=== PATIENT | female | born 1970 | race Caucasian/White ===

== ENCOUNTER 2016-09-24 14:46 | Emergency (ER) | payer OTHER, MEDICARE ==
[2013-11-06 04:10] VITALS: BMI 25.8
[~2016-09-24 14:46] MED LIST: ACETAMINOPHEN500 M1 PO; BACTRIM DS TABL1 TAB PO; BACTROBAN CREAM15 GM TP; CIPRO500 MG PO; EFFEXOR75 MG PO; GLUCOPHAGE500 MG PO; KLONOPIN1 MG PO; LEVAQUIN750 MG PO; LEVOXYL50 MCG PO; NAPROSYN500 MG PO; NEURONTIN600 MG PO; ROBAXIN500 MG PO; SUBOXONE 8 M1 TAB.SL; TOPAMAX200 MG PO; ULTRAM ER100 MG PO; XANAX0.25 MG PO
== END 2016-09-24 16:01 | disposition home or self-care (01) ==
LOC: D.ER 14:46
DX: H66.92 Otitis media, unspecified, left ear (principal); H92.02 Otalgia, left ear; F31.9 Bipolar disorder, unspecified; E03.9 Hypothyroidism, unspecified

== ENCOUNTER 2017-05-04 18:48 | Inpatient (IN) | payer MEDICARE ==
[~2017-05-04] VITALS: Ht 162.6 cm; Wt 90.1 kg
[2017-05-04 22:48] LABS: BASOPHILS 0.2 % (0-2); EOSINOPHILS 1.9 % (0-7); HEMATOCRIT 38.1 % (36.0-48.0); HEMOGLOBIN 12.8 g/dL (12-16); IMMATURE GRANULOCYTES 0.3 % (0-5); LYMPHOCYTES 19.2 % (15-50); MCH 29.1 pg (26.0-34.0); MCHC 33.6 g/dL (31.0-37.0); MCV 86.6 fL (80.0-100.0); MEAN PLATELET VOLUME 9.3 fL (7.4-10.4); MONOCYTES 7.5 % (2-11); NEUTROPHILS 70.9 % (40-80); PLATELET COUNT 374 10x3/uL (130-400); RDW 13.8 % (11.5-14.5)
[2017-05-04 22:58] LABS: ALBUMIN 3.2 g/dL (3.4-5.0); ALKALINE PHOSPHATASE 87 U/L (46-116); ALT (SGPT) 21 U/L (10-68); CALC OSMOLALITY 278 mosm/kg (275-300); CALCIUM 8.6 mg/dL (8.5-10.1); CARBON DIOXIDE 28.6 mmol/L (21.0-32.0); CHLORIDE - SERUM 104 mmol/L (98-107); CREATININE - SERUM 0.7 mg/dL (0.6-1.3); GLUCOSE 98 mg/dL (74-106); POTASSIUM - SERUM 3.9 mmol/L (3.5-5.1); SODIUM 140 mmol/L (136-145); UREA NITROGEN 12 mg/dL (7-18); eGFR NON AFRICAN AMERICAN > 90 mL/min (90-120)
[2017-05-05 03:12] LABS: APPEARANCE HAZY (CLEAR); BILIRUBIN NEGATIVE (NEGATIVE); COLOR YELLOW (YELLOW); GLUCOSE NEGATIVE (NEGATIVE); KETONE NEGATIVE (NEGATIVE); LEUKOCYTE ESTERASE TRACE (NEGATIVE); NITRITE NEGATIVE (NEGATIVE); PROTEIN NEGATIVE (NEGATIVE); UROBILINOGEN NORMAL (NORMAL)
[2017-05-05 03:13] LABS: BACTERIA MODERATE /hpf (NONE SEEN); EPITHELIAL CELLS 0-5 /hpf (0-5); RED CELLS - URINE NONE SEEN /hpf (0-5); WHITE CELLS - URINE 0-5 /hpf (0-5)
[2017-05-05 03:20] LABS: UDS - AMPHET POSITIVE QUAL (NEGATIVE); UDS - BARB NEGATIVE QUAL (NEGATIVE); UDS - BENZO POSITIVE QUAL (NEGATIVE); UDS - COCAINE NEGATIVE QUAL (NEGATIVE); UDS - METH NEGATIVE QUAL (NEGATIVE); UDS - OPIATE POSITIVE QUAL (NEGATIVE); UDS - PCP NEGATIVE QUAL (NEGATIVE); UDS - THC NEGATIVE QUAL (NEGATIVE)
[2017-05-05 04:00] VITALS: BP 98/66
[2017-05-05 05:54] VITALS: BP 98/66; BMI 32.3
[2017-05-05 08:00] VITALS: BP 100/57
[2017-05-05 10:13] VITALS: Ht 162.6 cm; Wt 90.1 kg
--- NOTE | 2017-05-05 11:28 | NUR ---
0715- AM ROUNDING- RECEIVED REPORT FROM CARTON FILLING MACHINE OPERATOR NURSE TITA. PT IS CURRENTLY SITTING UP ON SIDE OF BED WITH EYES OPEN RESTING. ON ROOM AIR. NO MONITOR. IV SEEN TO RIGHT AC THAT IS CURRENTLY SALINE LOCKED. SOILED DRESSING SEEN TO LEFT SIDE OF MIDDLE BACK, WILL ASSESS SITE AND PLACE NEW DRESSING. NO NEED AT THIS CURRENT TIME. WILL CONTINUE TO MONITOR AND CONTINUE WITH PLAN OF CARE. CALL LIGHT IS IN REACH.
[2017-05-05 12:00] VITALS: BP 103/71
--- NOTE | 2017-05-05 13:59 | NUR ---
SCDS PLACED ON PT.
--- NOTE | 2017-05-05 14:15 | NUR ---
UPON GIVING PT MEDICAITON, PT STATES "I NEED SOME PAIN MEDICINE BEFORE I WALK THE FUCK UP OUT OF HERE". KANU HARRISON NP ON UNIT. WILL LET HER BE AWARE OF THIS.
[2017-05-05 14:55] LABS: HEMOGLOBIN A1C 6.5 % (4.8-6.0)
--- NOTE | 2017-05-05 14:58 | NUR ---
DR. MCGRAW ON UNIT. DR. MCGRAW GIVES VERBAL ORDERS FOR NICOTINE PATCH. WILL AWAIT PHARMACY TO ACKNOWLEDGE AND GIVE ORDERED.
[2017-05-05 16:00] VITALS: BP 105/65
--- NOTE | 2017-05-05 16:05 | NUR ---
PTS IV TO RIGHT AC WILL NOT FLUSH. IV REMOVED WITH CATH TIP INTACT. COVERED SITE WITH 2X2 GAUZE PADS AND SECURED WITH TEGADERM. RESITED PT WITH 22G IV CATHETER TO RIGHT FOREARM X1 STICK. TOLERATED WELL. WILL HANG IV FLUIDS AND ANTIBIOTICS ORDERED.
--- NOTE | 2017-05-05 17:31 | NUR ---
1630- THIS NURSE CHANGED PTS DRESSING TO MID LEFT BACK ARE FOR SECOND TIME ON SHIFT DUE TO DRESSING BEING SOILED WITH BLOODY, WHITE PUS DRAINAGE. WOUND CLEANED WITH WOUND CLEANSER AND PAT DRIED. COVERED WOUND AREA WITH ABD PAD. 1700- DR. PILLAI IN ROOM NOW ASSESSING PTS WOUND TO LEFT MID BACK AREA. DR. PILLAI STATES SINCE PT HAS ALREADY EATEN THEY WILL DO DRAINAGE IN THE MORNING. PT INSTRUCTED TO REMAIN NOTHING BY MOUTH AFTER MIDNIGHT, PT AGREES. PT IS CURRENTLY SITTING UP IN BED EATING DINNER. NO NEED AT THIS CURRENT TIME. WILL CONTINUE TO MONITOR.
[2017-05-05 20:00] VITALS: BP 114/73
--- NOTE | 2017-05-05 20:38 | NUR ---
PT AWAKE, ALERT, ORIENTED, REQUESTING ICE CREAM AND SHERBERT, PAIN MEDICATION AND ATIVAN. I EXPLAINED TO PT THAT IT IS TOO EARLY, BUT SHE CAN HAVE THEM @ 22:00. PT DID ACCEPT THE PRN TORADOL. DRESSING TO LL BACK IS INTACT, WITH MODERATE DRAINAGE ACCUMULATING UNDERNEATH THE GAUZE. PT DENIES ANY OTHER NEEDS, CONTINUE TO MONITOR CLOSELY. BED LOW, CALL LIGHT IN REACH, SIDE RAILS X 2, HOB 30 DEGREES. PT'S IV IS CURRENTLY SL IN RIGHT FOREARM SO PT CAN AMBULATE WITHOUT DIFFICULTY.
[2017-05-06] VITALS: BP 89/67
--- NOTE | 2017-05-06 01:23 | NUR ---
PT RESTING COMFORTABLY, EASILY ROUSABLE TO VERBAL STIMULI, DENIES ANY NEEDS. CONTINUE TO MONITOR CLOSELY. BED LOW, CALL LIGHT IN REACH, SIDE RAILS X 2, HOB 30 DEGREES.
[2017-05-06 04:00] VITALS: BP 101/64
[2017-05-06 04:59] LABS: BASOPHILS 0.5 % (0-2); EOSINOPHILS 4.9 % (0-7); HEMATOCRIT 33.9 % (36.0-48.0); HEMOGLOBIN 11.4 g/dL (12-16); IMMATURE GRANULOCYTES 0.3 % (0-5); MCH 28.9 pg (26.0-34.0); MCHC 33.6 g/dL (31.0-37.0); MEAN PLATELET VOLUME 9.3 fL (7.4-10.4); MONOCYTES 10.4 % (2-11); NEUTROPHILS 61.9 % (40-80); PLATELET COUNT 410 10x3/uL (130-400); RBC 3.94 10x6/uL (4.00-5.40); RDW 13.9 % (11.5-14.5)
[2017-05-06 05:03] LABS: WBC 8.6 10x3/uL (4.8-10.8)
[2017-05-06 05:24] LABS: ALBUMIN 2.5 g/dL (3.4-5.0); ALKALINE PHOSPHATASE 98 U/L (46-116); BILIRUBIN - TOTAL 0.24 mg/dL (0.2-1.3); CALC OSMOLALITY 276 mosm/kg (275-300); CALCIUM 7.8 mg/dL (8.5-10.1); CARBON DIOXIDE 26.4 mmol/L (21.0-32.0); CHLORIDE - SERUM 104 mmol/L (98-107); CREATININE - SERUM 0.7 mg/dL (0.6-1.3); GLUCOSE 153 mg/dL (74-106); PROTEIN - SERUM 5.9 g/dL (6.4-8.2); SODIUM 137 mmol/L (136-145); UREA NITROGEN 12 mg/dL (7-18); eGFR NON AFRICAN AMERICAN > 90 mL/min (90-120)
[2017-05-06 05:25] LABS: ALT (SGPT) 101 U/L (10-68); POTASSIUM - SERUM 3.3 mmol/L (3.5-5.1)
--- NOTE | 2017-05-06 05:54 | NUR ---
CONSENTS FOR INCISION AND DRAINAGE OF BACK ABSCESS PER DR. PILLAI ALONG WITH BLOOD AND ANESTHESIA CONSENTS SIGNED AND IN CHART. PT DENIED ANY QUESTIONS DURING THIS. CONTINUE TO MONITOR CLOSELY. BED LOW, CALL LIGHT IN REACH, SIDE RAILS X 2, HOB 30 DEGREES.
--- NOTE | 2017-05-06 08:10 | NUR ---
0715- AM ROUNDING- RECEIVED REPORT FROM TYRE BUILDER NURSE ROSEMARY. PT IS CURRENTLY SITTING UP IN BED WITH EYES OPEN RESTING. ANESTHESIA IN ROOM NOW ASKING PT QUESTIONS. PT IS NPO ORDERED FOR PROCEDURE TODAY. CONSENTS ARE SIGNED AND IN CHART. ON ROOM AIR. ON MONITOR SHOWING SR, HR 88. IV SEEN TO RIGHT FOREARM WITH NS RUNNING AT KVO. NO NEED AT THIS CURREN TIME. WILL CONTINUE TO MONITOR AND CONTINUE WITH PLAN OF CARE.
[2017-05-06 09:31] VITALS: BP 84/41
--- NOTE | 2017-05-06 10:23 | NUR ---
1000- PT GIVEN PRE-OP MEDICATIONS WITH SIP OF WATER ORDERED. IV FLUIDS HUNG AND TUBING PRIMED. PT HAS BEEN NPO SINCE MIDNIGHT. CONSENTS ARE SIGNED AND IN CHART. PT TO OR VIA BED.
--- NOTE | 2017-05-06 12:12 | NUR ---
PT IS BACK FROM OR VIA BED. PT IS AWAKE, BUT SLIGHTLY LETHARGIC. ON ROOM AIR. VITAL SIGNS STARTED PER PROTOCOL. CDI DRESSING TO LEFT SIDE OF BACK.
[2017-05-06 12:13] VITALS: BP 112/68
--- NOTE | 2017-05-06 14:03 | NUR ---
PTS GUEST MEMBER COMES UP TO NURSES STATION DEMANDING PTS BEDDING BE CHANGED AND THAT PT WAS UPSET PTS BEDDING HAS NOT BEEN CHANGED. THIS NURSE INFORMED GUEST THAT THIS NURSE WAS JUST IN PTS ROOM GETTING HER TWO CLEAN GOWNS REQUESTED AND THAT PT HAS NOT SAID ONE WORD TO THIS NURSE REGARDING BEDDING BEING CHANGED. AT THE SAME TIME GUEST WORE ISOLATION GEAR OUT OF PTS ROOM TO NURSES STATION AND WAS INSTRUCTED TO NOT WEAR CONTAMINATED GOWN OUT. PT GOT IRRIATED AND STATES PTS BEDDING NEEDS TO BE TAKEN CARE OF. I INFORMED PTS GUEST THAT WE WILL GET BEDDING CHANGED. ELENA PAZ AND I WENT AND CHANGED PTS BEDDING.
--- NOTE | 2017-05-06 15:08 | NUR ---
PT NOW ON EP. REPLACED POTASSIUM ORDERED AND ORDERED LAB TO BE DRAWN DIRECTED BY EP. PT IS LETHARGIC LAYING IN BED WITH EYES CLOSED RESTING. CALL LIGHT IS IN REACH. WILL CONTINUE TO MONITOR.
--- NOTE | 2017-05-06 16:25 | OP ---
PATIENT NAME: TIMI MADHAV MEDICAL RECORD: [id number] :70 LOCATION:D. [id number] ADMISSION DATE:05/05/17 SURGEON: LEIDY PILLAI MD DATE OF OPERATION: 05/06/2017 SURGEON: Leidy Pillai MD PREOPERATIVE DIAGNOSIS: Left back cellulitis with abscess. POSTOPERATIVE DIAGNOSIS: Left back cellulitis with abscess. PROCEDURE PERFORMED: Incision and drainage of multiloculated complex subcutaneous abscess. ANESTHESIA: General. COMPLICATIONS: None. SPECIMENS: 1. Tissue culture. 2. Anaerobic and aerobic cultures. Case was grossly contaminated. ESTIMATED BLOOD LOSS: 20 cc. OPERATIVE COURSE: After consent was obtained, the patient was taken to the operating room. The patient was intubated and then placed into the prone position on the operating table. The back was prepped and draped in typical sterile fashion. Local anesthetic was administered. An elliptical skin incision was made including the skin opening. The skin ellipse was sent for tissue culture. Approximately 20 cc of pus were expressed from the wound. Culture swabs were taken and sent to the lab for culture. Finger dissection was performed breaking up the multiloculated skin and subcutaneous tissue abscess cavity. The abscess cavity measured 10 cm x 4 cm x 4 cm. The wound was copiously irrigated and suctioned. Hemostasis was obtained with electrocautery. The wound was then packed with Kerlix soaked in Betadine and peroxide. At the end of the case, all needle and instrument counts were correct. No complications occurred. The patient was extubated and transferred to the PACU in stable condition. TRANSINT:[id number] Voice Confirmation ID: [id number] DOCUMENT ID: [id number] LEIDY PILLAI MD at 1625 CC: [id number] DICTATION DATE: 05/06/17 1103 HYPERBARIC TECHNICIAN: 05/06/17 1306 [place] [address]
--- NOTE | 2017-05-06 16:27 | NUR ---
UPON GIVING PT SCHEDULED MEDICATIONS, PT ASKED FOR PAIN MEDICATION. I WENT AND GOT PAIN MEDICATION AND CAME BACK. STARTED TO GIVE PT PAIN MEDICATION AND PT STATES "I ASKED FOR ATIVAN EARLIER". I INFORMED PT THAT SHE TOLD ME SHE WANTED PAIN MEDICATION AND BEFORE I COULD APOLOGIZE PT RAISED HAND TO MY FACE AND STATES "I AM A HUMAN BEING, YOU ARE GOING TO TALK TO ME LIKE ONE OR I CAN FIND ANOTHER NURSE" I APOLOGIZED TO PT ABOUT PT NOT RECEIVING ATIVAN. ATIVAN PULLED BY SECOND NURSE AND THIS NURSE GAVE. I INFORMED PT I CAN GET MEDICATION CARE MANAGER IF NEEDED (PT STATES SHE DIDN'T HAVE UNIT MANAGERS NUMBER). PT STATES " I WILL TAKE CARE OF IT". I ASKED PT IF THERE WAS ANYTHING ELSE I COULD GET FOR HER AND PT STATES, " A CUP OF ICE AND SOME UNSWEET TEA". ELENA PAZ GAVE PT CUP OF ICE AND UNSWEET TEA. NO FURTHER NEED AT THIS TIME. WILL CONTINUE TO MONITOR.
--- NOTE | 2017-05-06 17:35 | NUR ---
PT IS CURRENTLY SITTING UP ON SIDE OF BED EATING DINNER TRAY. ASSISTED PT IN CHANGING HER GOWN (PT TOOK UNDERSHIRT OFF). DRESSING TO LEFT BACK IS CLEAN, DRY, AND INTACT. PT ASKED IF NEEDING ANYTHING ELSE. NO FURTHER NEED AT THIS TIME. WILL CONTINUE TO MONITOR.
--- NOTE | 2017-05-06 17:36 | NUR ---
Patient Name: TIMI COREY Admission Status: ER Accout number: [id number] Admission Date: 05-05-2017 : 1970 Admission Diagnosis: Attending: JENNA MCGRAW Current LOS: 1 Anticipated DC Date: 05-07-2017 Planned Disposition: Home with Home Health Primary Insurance: [employer] PPO PLANNED EXTERNAL PROVIDER: [facility] Discharge Planning Comments: * Is the patient Alert and Oriented? Yes 0 * How many steps to enter\exit or inside your home? 2 0 * PCP [facility] 0 * Pharmacy [facility], [facility]. 0 * Preadmission Environment Home Alone 0 * ADLs Independent 0 * Equipment None 0 * Other Equipment NO MEDICAL EQUIPMENT PROVIDER PREFERENCE 0 * List name and contact numbers for known caregivers / representatives who currently or will assist patient after discharge: NACHO COREY, [employer], 0 * Community resources currently utilized None 0 * Please name any agencies selected above. NONE 0 * Additional services required to return to the preadmission environment? Yes * Can the patient safely return to the preadmission environment? Yes 0 * Has this patient been hospitalized within the prior 30 days at any hospital? No [address] PILLAI WHO REPORTED THAT PT IS READY TO DISCHARGE FROM HIS STANDPOINT WITH DAILY DRESSING CHANGES AND HOME HEALTH. CM NOTIFIED ALEX HARRISON. CM MET WITH PT IN ROOM TO DISCUSS DISCHARGE PLANNING AND NEEDS. PT REPORTS LIVING AT HOME INDEPENDENTLY AND ALONE. PT HAS NO MEDICAL EQUIPMENT AND NO OUTSIDE SERVICES ASSISTING IN THE HOME. CM DISCUSSED AVAILABILITY OF HOME HEALTH, REHAB SERVICES AND MEDICAL EQUIPMENT. PT WOULD LIKE [facility], CHOICE SIGNED. PT HAS FRIEND, ARCELIA, THAT CAN BE TRAINED TO ASSIST WITH WOUND CARE IF NEEDED. PT REPORTS HER EX SPOUSE WILL PICK HER UP FOR DISCHARGE HOME. CM CALLED [facility], , SPOKE TO AYAAN WHO TOOK REFERRAL AND ACCEPTED PT FOR HOME HEALTH. CM FAXED REFERRAL TO [facility] AT [phone]. FOR DISCHARGE, HOME HEALTH NEEDS SPECIFIC WOUND CARE ORDERS FAXED TO [phone], NOTIFY [facility] OF DISCHARGE AT [phone]. Sports Administrator: Jason Carter
--- NOTE | 2017-05-06 18:09 | NUR ---
IN PTS ROOM CHECKING ON HER. PT STATES SHE NEEDS LAXATIVE OR SOMETHING DUE TO NOT HAVING A BM IN SEVERAL DAYS. GAVE PT CUP OF COFFEE AND PRUNE JUICE MIXED WITH SPRITE. PT STATES SHE FEELS LIKE SHE IS RUNNING A FEVER. THIS NURSE CHECKED PTS TEMP WHICH IS 98.5. TURNED LIGHTS OFF REQUESTED. NO FURTHER NEED AT THIS TIME. WILL CONTINUE TO MONITOR.
--- NOTE | 2017-05-06 19:20 | NUR ---
AWAKE/ALERT TALKING TO VISITORS IN ROOM. DENIES ANY NEEDS. BED IS LOW WITH SR UP X2. CL AND BEDSIDE TABLE WITH PERSONAL ITEMS IN REACH.
[2017-05-06 20:00] VITALS: BP 110/63
[2017-05-07] VITALS: BP 92/62
--- NOTE | 2017-05-07 00:25 | NUR ---
ADMIN NORCO PO AND ATIVAN PO PER REQUEST FOR C/O L SIDE INCISIONAL PAIN LEVEL 9 ON NUMBER SCALE; ATIVAN FOR RESTLESSNESS/ANXIETY.
--- NOTE | 2017-05-07 00:39 | NUR ---
AMBULATING IN HALLWAY, STATING GOING FOR COFFEE.
[2017-05-07 03:12] LABS: BASOPHILS 0.2 % (0-2); EOSINOPHILS 2.8 % (0-7); HEMATOCRIT 33.6 % (36.0-48.0); HEMOGLOBIN 11.1 g/dL (12-16); IMMATURE GRANULOCYTES 0.3 % (0-5); LYMPHOCYTES 22.5 % (15-50); MCH 28.6 pg (26.0-34.0); MCV 86.6 fL (80.0-100.0); MEAN PLATELET VOLUME 9.1 fL (7.4-10.4); NEUTROPHILS 64.2 % (40-80); PLATELET COUNT 419 10x3/uL (130-400); RBC 3.88 10x6/uL (4.00-5.40)
[2017-05-07 03:15] LABS: WBC 12.3 10x3/uL (4.8-10.8)
[2017-05-07 03:27] LABS: ALBUMIN 2.7 g/dL (3.4-5.0); ALKALINE PHOSPHATASE 127 U/L (46-116); ALT (SGPT) 103 U/L (10-68); BILIRUBIN - TOTAL 0.24 mg/dL (0.2-1.3); CALC OSMOLALITY 273 mosm/kg (275-300); CALCIUM 8.2 mg/dL (8.5-10.1); CARBON DIOXIDE 27.3 mmol/L (21.0-32.0); CHLORIDE - SERUM 104 mmol/L (98-107); CREATININE - SERUM 0.7 mg/dL (0.6-1.3); GLUCOSE 126 mg/dL (74-106); POTASSIUM - SERUM 3.9 mmol/L (3.5-5.1); PROTEIN - SERUM 6.4 g/dL (6.4-8.2); SODIUM 137 mmol/L (136-145); VANCOMYCIN - TROUGH 4.7 ug/mL (10.0-20.0); eGFR NON AFRICAN AMERICAN > 90 mL/min (90-120)
[2017-05-07 03:29] LABS: UREA NITROGEN 8 mg/dL (7-18)
[2017-05-07 04:00] VITALS: BP 106/61
--- NOTE | 2017-05-07 04:55 | NUR ---
RETURNING TO ROOM FROM AMBULATING IN HALLWAY. ADMIN SCHED ZOSYN IV. DENIES ANY NEEDS.
--- NOTE | 2017-05-07 05:35 | NUR ---
ADMIN VANCOMYCIN IV PER ORDER. READING HER TABLET. DENIES ANY NEEDS OR DISCOMFORTS.
--- NOTE | 2017-05-07 08:23 | NUR ---
AM MEDS GIVEN AT THIS TIME. ALSO 10MG OF NORCO FOR PAIN LEVEL OF 9/10. PT UP TO CHAIR, EATING BREAKFAST, DENIES ANY NEEDS AT THIS TIME. CALL LIGHT IN REACH,NAD NOTED, WILL CONTINUE TO MONITOR.
[2017-05-07 09:17] VITALS: BP 91/45
--- NOTE | 2017-05-07 09:59 | NUR ---
0.5MG OF ATIVAN GIVEN PER PT REQUEST. ALSO PROVIDED DRESSING CHANGE TO BACK INCISION. APPLIED A WET TO DRY DRESSING, PT TOLERATED PROCEDURE WELL. DENIES ANY NEEEDS AT THIS TIME. CALL LIGHT IN REACH, NAD NOTED, WILL CONTINUE TO MONITOR.
[2017-05-07 12:01] VITALS: BP 90/48
--- NOTE | 2017-05-07 13:33 | NUR ---
IVB VANCOMYCIN HUNG AT THIS TIME. PT IN BED, WITH EYES CLOSED. NAD NOTED, CALL LIGHT IN REACH, WILL CONTINUE TO MONITOR.
[2017-05-07] MEDS ORDERED: BACTRIM DS TABL1 TAB PO (14:59)
--- NOTE | 2017-05-07 15:43 | NUR ---
Patient Name: TIMI COREY Encounter No: [id number] : 1970 Primary Insurance: [employer] PPO Anticipated DC Date: 05-07-2017 Planned Disposition: Home with Home Health External Planned Provider: [facility] DCP follow-up note: CM RECEIVED CALL FROM AYAAN AT [facility] WANTING TO KNOW IF PT WAS DISCHARGING SO THAT SHE CAN GET PT ON WEEKEND SCHEDULE. CM NOTIFIED CAREER GUIDANCE TECHNICIAN HUNTER. CM RECEIVED DISCHARGE ORDERS. BRENT CALLED AYAAN AT [facility], , NOTIFIED OF DISCHARGE, PT TO BE ADMITTED FOR HOME HEALTH TOMORROW. CM FAXED DISCHARGE INFORMATION TO [facility] AT [phone]. CM MET WITH PT IN ROOM, NOTIFIED OF HOME HEALTH ARRANGEMENT FOR TOMORROW, PT VERIFIED HER FRIEND WILL BE THERE TO ASSIST WITH WOUND CARE. PT REPORTS HAVING TRANSPORTATION ARRANGED TODAY FOR TRANSPORT HOME. IMPORTANT MESSAGE FROM MEDICARE PROVIDED AND EXPLAINED. PT CONCERNED THAT HER WOUND HAS NOT BEEN REPACKED TODAY. CM NOTIFIED BEDSIDE NURSE AND CLARIFIED ORDERS. Jason Carter, CASE MANAGEMENT
--- NOTE | 2017-05-07 16:11 | NUR ---
PROVIDED VERBAL AND WRITTEN DISCHARGE TEACHING TO PT. PT VERBALIZED UNDERSTANDING REGARDING TEACHING. D/C RT FA IV ,TIP INTACT. PT WAITING ON RIDE, NAD NOTED, WILL CONTINUE TO MONITOR.
--- NOTE | 2017-05-07 17:01 | NUR ---
PT LEFT UNIT VIA AMBULATORY, NAD NOTED.
== END 2017-05-07 17:01 | disposition home health service (06) | DRG 580 ==
LOC: D.ER 18:48 → D.M2 05-05 04:01
PROVIDERS: Emergency Medicine; Surgery; ADMIT Family Medicine
PROC: 0J970ZZ Drainage of Back Subcutaneous Tissue and Fascia, Open Approach (ICD-10-PCS; principal; 2017-05-06 09:00)
DX: L03.312 Cellulitis of back [any part except buttock and flank] (principal); F17.203 Nicotine dependence unspecified, with withdrawal; L02.212 Cutaneous abscess of back [any part, except buttock and flank]; F41.1 Generalized anxiety disorder; F32.9 Major depressive disorder, single episode, unspecified; I10 Essential (primary) hypertension; E03.9 Hypothyroidism, unspecified

== ENCOUNTER 2017-08-07 21:06 | Emergency (ER) | payer MEDICARE ==
[2017-05-05 10:13] VITALS: BMI 32.2
== END 2017-08-07 21:50 | disposition home or self-care (01) ==
LOC: D.ER 21:06
DX: L02.212 Cutaneous abscess of back [any part, except buttock and flank] (principal); F17.200 Nicotine dependence, unspecified, uncomplicated

== ENCOUNTER 2018-05-09 04:38 | Emergency (ER) | payer MEDICARE ==
[~2018-05-09] VITALS: Ht 162.6 cm; Wt 81.8 kg
[2018-05-09 04:44] VITALS: Ht 162.6 cm; Wt 81.8 kg
[2018-05-09] MEDS ORDERED: MINOCIN100 MG PO (05:05)
[2018-05-09 05:14] VITALS: BP 132/85
== END 2018-05-09 05:29 | disposition home or self-care (01) ==
LOC: D.ER 04:38
DX: L01.00 Impetigo, unspecified (principal); E11.9 Type 2 diabetes mellitus without complications; F17.200 Nicotine dependence, unspecified, uncomplicated

== ENCOUNTER 2019-03-13 08:42 | Emergency (ER) | payer MEDICARE, MEDICAID ==
[~2019-03-13] VITALS: Ht 162.6 cm; Wt 81.8 kg
[~2019-03-13 08:42] MED LIST changes: +MINOCIN100 MG PO
[2019-03-13 08:45] VITALS: Ht 162.6 cm; Wt 81.8 kg
[2019-03-13] MEDS ORDERED: KEFLEX500 MG PO (08:58)
[2019-03-13] MEDS ORDERED: CLEOCIN HCL300 MG PO (08:58)
[2019-03-13 10:05] VITALS: BP 117/74
== END 2019-03-13 10:05 | disposition home or self-care (01) ==
LOC: D.ER 08:42
DX: L03.115 Cellulitis of right lower limb (principal)

== ENCOUNTER 2019-06-13 18:55 | Emergency (ER) | payer MEDICARE, MEDICAID ==
[~2019-06-13] VITALS: Ht 162.6 cm; Wt 77.3 kg
[~2019-06-13 18:55] MED LIST changes: +CLEOCIN HCL300 MG PO; +KEFLEX500 MG PO
[2019-06-13 18:57] VITALS: Ht 162.6 cm; Wt 77.3 kg
[2019-06-13 19:35] LABS: APPEARANCE HAZY (CLEAR); BILIRUBIN NEGATIVE (NEGATIVE); COLOR DK YELLOW (YELLOW); GLUCOSE NEGATIVE (NEGATIVE); KETONE NEGATIVE (NEGATIVE); NITRITE POSITIVE (NEGATIVE); PROTEIN NEGATIVE (NEGATIVE); SPECIFIC GRAVITY 1.025 (1.005-1.020); UROBILINOGEN NORMAL (NORMAL)
[2019-06-13 19:36] LABS: BACTERIA MANY /hpf (NEGATIVE); EPITHELIAL CELLS 0-5 /hpf (0-5); MUCUS <1+ /lpf (NONE SEEN); RED CELLS - URINE 0-5 /hpf (0-5); WHITE CELLS - URINE 0-5 /hpf (NEGATIVE)
[2019-06-13 19:51] LABS: UDS - AMPHET POSITIVE QUAL (NEGATIVE); UDS - BARB NEGATIVE QUAL (NEGATIVE); UDS - BENZO POSITIVE QUAL (NEGATIVE); UDS - COCAINE NEGATIVE QUAL (NEGATIVE); UDS - OPIATE POSITIVE QUAL (NEGATIVE); UDS - PCP NEGATIVE QUAL (NEGATIVE); UDS - THC NEGATIVE QUAL (NEGATIVE)
[2019-06-13 19:56] LABS: BASOPHILS 0.3 % (0-2); EOSINOPHILS 2.1 % (0-7); HEMATOCRIT 40.4 % (36.0-48.0); HEMOGLOBIN 13.7 g/dL (12-16); IMMATURE GRANULOCYTES 0.3 % (0-5); LYMPHOCYTES 32.6 % (15-50); MCH 29.1 pg (26.0-34.0); MCHC 33.9 g/dL (31.0-37.0); MEAN PLATELET VOLUME 9.1 fL (7.4-10.4); NEUTROPHILS 57.7 % (40-80); PLATELET COUNT 434 10x3/uL (130-400); RDW 14.9 % (11.5-14.5); WBC 10.9 10x3/uL (4.8-10.8)
[2019-06-13 20:13] LABS: ALBUMIN 3.3 g/dL (3.4-5.0); ALKALINE PHOSPHATASE 76 U/L (46-116); ALT (SGPT) 20 U/L (10-68); BILIRUBIN - TOTAL 0.59 mg/dL (0.2-1.3); CALC OSMOLALITY 286 mosm/kg (275-300); CALCIUM 8.5 mg/dL (8.5-10.1); CARBON DIOXIDE 30.3 mmol/L (21.0-32.0); CHLORIDE - SERUM 107 mmol/L (98-107); CREATINE KINASE 142 UL (21-215); CREATININE - SERUM 0.7 mg/dL (0.6-1.3); GLUCOSE 113 mg/dL (74-106); LIPASE 83 U/L (73-393); MAGNESIUM - SERUM 1.8 mg/dL (1.8-2.4); POTASSIUM - SERUM 3.5 mmol/L (3.5-5.1); SODIUM 143 mmol/L (136-145); UREA NITROGEN 14 mg/dL (7-18); eGFR NON AFRICAN AMERICAN > 90 mL/min (90-120)
[2019-06-13] MEDS ORDERED: OMNICEF300 MG PO (20:38)
[2019-06-13 22:20] VITALS: BP 125/79
== END 2019-06-13 22:20 | disposition home or self-care (01) ==
LOC: D.ER 18:55
PROVIDERS: Family Medicine
DX: N39.0 Urinary tract infection, site not specified (principal); R20.0 Anesthesia of skin

== ENCOUNTER → 2019-07-27 10:51 | Outpatient (CLI) | payer MEDICARE, MEDICAID ==
[2019-06-13 18:57] VITALS: BMI 29.2
[~2019-07-27 10:51] MED LIST changes: +OMNICEF300 MG PO
[2019-07-27 11:18] LABS: BASOPHILS 0.8 % (0-2); EOSINOPHILS 1.8 % (0-7); HEMATOCRIT 42.1 % (36.0-48.0); HEMOGLOBIN 13.8 g/dL (12-16); IMMATURE GRANULOCYTES 0.2 % (0-5); MCH 29.2 pg (26.0-34.0); MCHC 32.8 g/dL (31.0-37.0); MCV 89.2 fL (80.0-100.0); MEAN PLATELET VOLUME 9.3 fL (7.4-10.4); MONOCYTES 6.9 % (2-11); NEUTROPHILS 60.3 % (40-80); PLATELET COUNT 419 10x3/uL (130-400); RBC 4.72 10x6/uL (4.00-5.40); RDW 15.2 % (11.5-14.5); WBC 9.6 10x3/uL (4.8-10.8)
[2019-07-27 11:35] LABS: ALBUMIN 3.4 g/dL (3.4-5.0); ALKALINE PHOSPHATASE 69 U/L (46-116); ALT (SGPT) 32 U/L (10-68); BILIRUBIN - TOTAL 0.76 mg/dL (0.2-1.3); CALC OSMOLALITY 275 mosm/kg (275-300); CALCIUM 8.6 mg/dL (8.5-10.1); CARBON DIOXIDE 27.6 mmol/L (21.0-32.0); CHLORIDE - SERUM 105 mmol/L (98-107); CHOL - HDL RATIO 2.8 ratio (2.3-4.1); CHOLESTEROL, TOTAL 162 mg/dL (0-200); CREATININE - SERUM 0.6 mg/dL (0.6-1.3); GLUCOSE 104 mg/dL (74-106); HDL CHOLESTEROL 57 mg/dL (32-96); LDL CHOLESTEROL 86 mg/dL (0-100); LDL-HDL RATIO 1.5 ratio (1.5-3.5); POTASSIUM - SERUM 4.8 mmol/L (3.5-5.1); PROTEIN - SERUM 7.1 g/dL (6.4-8.2); SODIUM 138 mmol/L (136-145); TRIGLYCERIDE 95 mg/dL (30-200); UREA NITROGEN 12 mg/dL (7-18); eGFR NON AFRICAN AMERICAN > 90 mL/min (90-120)
[2019-07-27 12:17] LABS: THYROID STIMULATING HORMONE 1.77 uIU/mL (0.36-3.74)
== END | disposition home or self-care (01) ==
LOC: D.LAB 10:51
PROVIDERS: ATTEND Family Medicine
DX: R26.81 Unsteadiness on feet (principal); R53.83 Other fatigue; Z00.01 Encounter for general adult medical examination with abnormal findings; E11.9 Type 2 diabetes mellitus without complications

== ENCOUNTER 2020-06-17 12:44 | Emergency (ER) | payer MEDICARE, MEDICAID ==
[~2020-06-17] VITALS: Ht 162.6 cm; Wt 84.1 kg
[2020-06-17 13:03] VITALS: BP 155/87; Ht 162.6 cm; Wt 84.1 kg
[2020-06-17] MEDS ORDERED: DOXYCYCLINE HY100 M2 PO (13:25)
[2020-06-17] MEDS ORDERED: VALISONE 0.1% C15 GM TOPICAL (13:25)
[2020-06-17] MEDS ORDERED: SELENIUM SULFI118 ML TP (13:25)
== END 2020-06-17 13:41 | disposition home or self-care (01) ==
LOC: D.ER 12:44
DX: L40.9 Psoriasis, unspecified (principal); L20.9 Atopic dermatitis, unspecified; T14.8XXA Other injury of unspecified body region, initial encounter; X58.XXXA Exposure to other specified factors, initial encounter; E11.9 Type 2 diabetes mellitus without complications